=== PATIENT | female | born 1940 | race Caucasian/White ===

== ENCOUNTER 2017-05-23 08:58 | Inpatient (IN) | payer MEDICARE ==
--- NOTE | 2017-05-23 10:09 | CT ---
CT BRAIN WITHOUT CONTRAST: Date: 05/23/17 HISTORY: Headache. FINDINGS: There is an acute large intraparenchymal hematoma in the right temporal lobe measuring approximately 5.0 cm in largest dimension with surrounding edema. The ventricular size is appropriate. No midline shift is seen. No abnormal extra-axial fluid collections are noted. The bony calvarium is intact. T he visualized paranasal sinuses and mastoid air cells are well aerated. There are changes of mild ch ronic small vessel ischemic disease in the periventricular white matter. 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 IMPRESSION: Acute right temporal lobe parenchymal hemorrhage. Findings discussed over the telephone with JESSICA Toro, at 0948 hours. CODE CR. POS: [facility]
[2017-05-23 10:25] LABS: #Lymphocytes 0.8 thou/uL (1.20-3.40); #Monocytes 0.6 thou/uL (0.11-0.59); #Neutrophils 4.3 thou/uL (1.40-6.50); %Eosinophils 0.2 % (0.0-10.0); %Lymphocytes 14.3 % (21.0-51.0); %Monocytes 9.9 % (0.0-10.0); Hematocrit 34.9 % (36.0-47.0); Mean Platelet Volume 6.7 fL (7.4-10.4); Red Blood Cell (RBC) Count 3.73 mill/uL (4.20-5.40); White Blood Cell (WBC) Count 5.7 thou/uL (4.8-10.8)
[2017-05-23 10:32] LABS: PTT 24.8 SEC (22.9-36.1); Prothrombin Time 12.8 SEC (12.0-14.7)
[2017-05-23 10:37] LABS: ALT (SGPT) 17 U/L (8-55); AST (SGOT) 20 U/L (5-34); Alkaline Phosphatase 60 U/L (40-150); Anion Gap 15 mmol/L (10-20); BUN (Urea Nitrogen) 38 mg/dL (9.8-20.1); Bilirubin, Total 0.4 mg/dL (0.2-1.2); CK (CPK) 81 U/L (29-168); Calc. Creatinine Clearance 0 mL/min (70-130); Calcium 9.8 mg/dL (7.8-10.44); Carbon Dioxide 28 mmol/L (23-31); Chloride 97 mmol/L (98-107); Estimated GFR-MDRD 43; Globulin 3.4 g/dL (2.4-3.5); Protein, Total 7.8 g/dL (6.0-8.3)
[2017-05-23 10:41] LABS: Troponin I Less than 0.010 ng/mL (< 0.028)
[2017-05-23] MEDS ORDERED: Ondansetron ODT 4 MG TAB SL PRN (11:46)
[2017-05-23] MEDS ORDERED: Sodium Chloride 0.9% 1,000 ML IV SCH (11:46)
[2017-05-23] MEDS ORDERED: Ondansetron HCl/PF 4 MG/2 ML Vial IVP PRN (11:46)
[2017-05-23 11:56] VITALS: BMI 25.0
[2017-05-23] MEDS ORDERED: Mag-Al 1200 mg/1200 mg/30 ML UDCUP PO PRN (12:22)
[2017-05-23] MEDS ORDERED: Docusate 100 MG CAP PO PRN (12:22)
[2017-05-23] MEDS ORDERED: Bisacodyl 10 MG SUPP PR PRN (12:22)
[2017-05-23] MEDS ORDERED: niCARdipine 20MG in NaCl 200 ML BAG IVPB PRN (12:22)
--- NOTE | 2017-05-23 12:47 | HP ---
HISTORY OF PRESENT ILLNESS: The patient is a 77-year-old female with a past medical history of hypertension who presented to the ER for evaluation of a headache which began 1 week ago. She reports that headache began suddenly along the frontal region 1 week ago associated with 2 episodes of nausea and vomiting. She reports since that time headache been waxing and waning; however , she had persistent nausea. She has been treating headache with Aleve and aspirin; however, today headache worsened this morning; therefore, she was brought to the emergency department by her for further evaluation. CT head was done in the emergency department and revealed acute right-sided temporal hemorrhage. There is no midline shift. The patient's only complaints are headache and nausea. She has no other complaints at this time. Neurosurgery Service was consulted for further evaluation of this patient's acute intracranial hemorrhage. I am seeing the patient at bedside. She is comfortable. She has no complaints other than a mild headache. REVIEW OF SYSTEMS: Per HPI. PAST MEDICAL HISTORY: Notable for hypertension. PAST SURGICAL HISTORY: The patient denies any prior surgical history. FAMILY HISTORY: Noncontributory. SOCIAL HISTORY: The patient does not smoke, drink or use any drugs. ALLERGIES: The patient has no known drug allergies. MEDICATIONS LIST: Enalapril/hydrochlorothiazide 10 mg/25 mg 1 tab p.o. daily, Augmentin 2 tabs p.o. daily, aspirin 81 mg 1 tab p.o. daily. PHYSICAL EXAMINATION: CONSTITUTIONAL: No acute distress. VITAL SIGNS: Temperature 98.7, heart rate 87, respiration rate is 18, 98% on room air, BP is 142/44. HEAD: Head is normocephalic, atraumatic. EYES: PERRLA. Extraocular movements are intact. Sclerae are white. ENT: OP is clear. Moist oral mucosa, pink, intact. NECK: Nontender to palpation. Free active range of motion, no meningismus or nuchal rigidity. CARDIOVASCULAR: Regular rate and rhythm. LUNGS: Breathing comfortably, no events of dyspnea, symmetric chest expansion. MUSCULOSKELETAL: Good muscle tone bilateral upper and lower extremities. NEUROLOGIC: No focal motor weakness or reflex asymmetry. The patient is alert and oriented x4. No focal neurologic deficits are appreciated. She has normal cranial nerve exam. She has a no limb ataxia. Normal [id number]. ASSESSMENT AND PLAN: Acute intracranial hemorrhage. PLAN: I discussed the patient's presentation, exam findings and imaging with Dr. Oliver. We will admit patient to CCU for close monitoring. At this time , her blood pressure appears to be well controlled on her p.o. medications; however, will keep a close eye on blood pressure with a goal range of systolic less than 150. I have ordered Cardene p.r.n., head of the bed will be elevated to 30 degrees. We will discharge home aspirin. She is not on any other anticoagulants. The Critical Care Service has also been consulted. We will treat with fluids and recheck BMP. Please reach out to the Neurosurgical Service for additional questions or concerns. IMANI
[2017-05-23] MEDS ORDERED: Gadobenate Dimeglumine 529 MG/1 ML (20ML VIAL) ONE ×3 (13:32→13:33)
[2017-05-23] MEDS: Acetaminophen 325 MG TAB PO PRN ×2 (16:01→20:19)
--- NOTE | 2017-05-23 17:23 | MRI ---
MR ANGIOGRAM MRA OF HEAD NONCONTRAST: 05/23/17 HISTORY: 77-year-old female with acute intracranial, intraparenchymal hemorrhage. TECHNIQUE: 3D [id number] MRA performed in multiple axial slabs. Source images and 3D MIP reconstructions ev aluated. FINDINGS: The anterior and posterior circulation arteries are of normal caliber. There is no enlarged feeding artery or large draining vein associated with the moderately large right temporal lobe intra-axial h ematoma. There is no evidence of aneurysm greater than 3 mm. No high grade stenosis or occlusion. IMPRESSION: 1. Acute, moderately large right temporal lobe intra-axial hematoma. 2. Normal appearance of [place] arteries. 3. No evidence of arteriovenous malformation or aneurysm. POS: [facility]
--- NOTE | 2017-05-23 18:03 | MRI ---
MAGNETIC RESONANCE ANGIOGRAM MRA OF NECK WITH AND WITHOUT CONTRAST: Date: 05/23/17 HISTORY: Acute right temporal lobe intra-axial hematoma. TECHNIQUE: 2D [id number] MRA performed from cervicothoracic junction to skull base. IV injection of 10 mL MultiHance Gadolinium based contrast agent. FLASH 3D coronal sequence from level of aortopulmonic window to skull base. 3D MIP reconstructions of both sequences. FINDINGS: There is no high grade stenosis involving the brachiocephalic, bilateral proximal subclavian, bilate ral common carotid, or bilateral vertebral arteries. Mild stenosis at proximal right internal caroti d artery near origin. There is an approximately 0.7 cm length of proximal left internal carotid damir ry, beginning at its origin, that is stenotic. The degree of stenosis is moderate to severe. IMPRESSION: Moderate to severe stenosis of the proximal left internal carotid artery. POS: [facility]
--- NOTE | 2017-05-23 18:15 | MRI ---
MRI OF BRAIN WITH AND WITHOUT CONTRAST: 05/23/17 Multiplanar and multisequential imaging of brain obtained. Postcontrast images obtained after the ad ministration of 10 mL of Multihance. HISTORY: Right temporal parenchymal hematoma. Comparison made to CT earlier today. FINDINGS: Hematoma of the right temporal lobe is again noted. There is surrounding edema. Review of a diffusion weighted images shows some questionable restricted diffusion along the borders of this hematoma; however, there is no significant restricted diffusion extending to the peripheral cortex making a hemorrhagic infarct unlikely. On postcontrast images, there is some mild peripheral enhancement which can be seen with hematoma. T here is some nonspecific nodular enhancement seen along the posterior borders. Hemorrhagic neoplasm is felt less likely but not excluded. Followup will be necessary to reassess the enhancement. There is no aberrant vessels seen that would indicate an AVM. While there is no obvious signs of diffuse a myloid angiopathy on the gradient echo, amyloid angiopathy as an etiology for this hematoma remains a consideration. IMPRESSION: Right temporal lobe hematoma. 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 See discussion above. Periphe ral enhancement. POS: [facility]
[2017-05-24 03:55] LABS: #Eosinphils 0.1 thou/uL (0.0-0.7); #Lymphocytes 1.2 thou/uL (1.20-3.40); #Monocytes 0.6 thou/uL (0.11-0.59); #Neutrophils 3.1 thou/uL (1.40-6.50); %Basophils 0.9 % (0.0-1.0); %Eosinophils 1.7 % (0.0-10.0); %Lymphocytes 23.4 % (21.0-51.0); %Monocytes 12.4 % (0.0-10.0); Mean Platelet Volume 6.8 fL (7.4-10.4); White Blood Cell (WBC) Count 5.1 thou/uL (4.8-10.8)
[2017-05-24 04:09] LABS: Anion Gap 11 mmol/L (10-20); BUN (Urea Nitrogen) 29 mg/dL (9.8-20.1); Calc. Creatinine Clearance 45 mL/min (70-130); Calcium 9.2 mg/dL (7.8-10.44); Carbon Dioxide 28 mmol/L (23-31); Chloride 101 mmol/L (98-107); Estimated GFR-MDRD 58
[2017-05-24] MEDS ORDERED: niCARdipine HCl 25 MG in Sodium Chloride 0.9% 250 ML 240 ML IVPB SCH (06:45)
[2017-05-24] MEDS ORDERED: hydrALAZINE 20 MG/ML VIAL SLOW IVP PRN (07:53)
[2017-05-24] MEDS ORDERED: Labetalol HCl 100 MG/20 ML VIAL SLOW IVP PRN ×2 (07:53→18:15)
[2017-05-24] MEDS ORDERED: Ondansetron ODT 4 MG TAB PO PRN (07:55)
[2017-05-24] MEDS ORDERED: Calcium Carbonate 500 MG ChewTAB PO PRN (07:55)
[2017-05-24] MEDS ORDERED: Ondansetron HCl/PF 4 MG/2 ML Vial IVP PRN (07:55)
[2017-05-24] MEDS ORDERED: Acetaminophen 650 MG Suppository PR PRN (07:55)
[2017-05-24] MEDS ORDERED: cloNIDine 0.1 MG TAB PO PRN ×2 (07:57→18:14)
[2017-05-24] MEDS ORDERED: Potassium Chloride 10 MEQ TAB PO SCH ×3 (08:00→18:30)
[2017-05-24] MEDS ORDERED: Amlodipine 5 mg/Benazepril 10 mg CAP PO SCH (09:00)
[2017-05-24] MEDS: Docusate 100 MG CAP PO SCH ×2 (09:01→22:14)
[2017-05-24] MEDS: Famotidine 20 MG TAB PO SCH (09:01)
--- NOTE | 2017-05-24 09:14 | CT ---
PRELIMINARY REPORT/[facility]/EMERGENCY AFTER HOURS PROCEDURE: EXAM: CT Head Without Intravenous Contrast EXAM DATE/TIME: Exam ordered 05/24/2017 4:38 AM CLINICAL HISTORY: 77 years old, female; Signs and symptoms; Other: F/u stroke TECHNIQUE: Axial computed tomography images of the head/brain without intravenous contrast. COMPARISON: CT Brain WO Con 2017-05-23 09:40 FINDINGS: Brain: There is a stable RIGHT temporal lobe parenchymal hematoma measuring approximately 4.5 x 2.6 cm, unchanged from prior. There is increased density of the posterior inferior falx at the level of the occipital lobe which may represent hemorrhage, unchanged from prior. There is no significant mas s effect or midline shift. There is a focal basal ganglia hypodensity consistent with a remote lacun ar infarction. No significant white matter disease. Ventricles: Normal. No ventriculomegaly. Bones/joints: Normal. No acute fracture. Soft tissues: Normal. Sinuses: Unremarkable as visualized. No acute sinusitis. Mastoid air cells: Unremarkable as visualized. No mastoid effusion. IMPRESSION: 1. There is a stable RIGHT temporal lobe parenchymal hematoma measuring approximately 4.5 x 2.6 cm, unchanged from prior. 2. There is increased density of the posterior inferior falx at the level of the occipital lobe whic h may represent hemorrhage, unchanged from prior. Thank you for allowing us to participate in the care of your patient. Dictated and Authenticated by: Josue Shelton MD 05/24/2017 5:55 AM Central Time ([place] \T\ [place]) FINAL REPORT CT BRAIN WITHOUT CONTRAST: Date: 05/24/17 FINDINGS/IMPRESSION: I agree with the preliminary report given by Dr. Josue Shelton of [facility]. POS: [facility]
[2017-05-24] MEDS: Acetaminophen 325 MG TAB PO PRN ×2 (10:45→19:28)
--- NOTE | 2017-05-24 21:28 | PDOC.PN ---
- Subjective Encounter Start Date: 05/24/17 Encounter Start Time: 17:30 Patient seen and examined. No new complaints. Consulted for medical mngt. NSG signed off. - Objective MAR Reviewed: Yes Vital Signs & Weight: Vital Signs (12 hours) Temp Pulse Pulse Pulse Resp BP BP 05/24/17 19:52 05/24/17 19:35 99.1 F 80 18 05/24/17 17:30 97.4 F L 80 16 05/24/17 16:00 99.7 F H 05/24/17 15:00 99.7 F H 05/24/17 14:20 81 84 167/67 H 146/64 H 05/24/17 12:00 98.2 F BP Pulse Ox 05/24/17 19:52 96 05/24/17 19:35 149/67 H 96 05/24/17 17:30 135/61 100 05/24/17 16:00 05/24/17 15:00 05/24/17 14:20 05/24/17 12:00 Weight Weight 192 lb 14.472 oz Most Recent Monitor Data Heart Rate from ECG 89 NIBP 142/64 NIBP BP-Mean 95 Respiration from ECG 19 SpO2 97 I&O: 05/23/17 05/24/17 05/25/17 06:59 06:59 06:59 Intake Total 1733 540 Output Total 1250 860 Balance 483 -320 Result Diagrams: 05/24/17 03:31 05/25/17 03:21 EKG Reviewed by me: Yes (Tele SR) Phys Exam - Physical Examination Constitutional: NAD Respiratory: no wheezing, no rhonchi Cardiovascular: RRR, no rub Gastrointestinal: soft, non-tender, positive bowel sounds Musculoskeletal: no edema Neurological: moves all 4 limbs Dx/Plan (1) Intracranial bleed Code(s): I62.9 - NONTRAUMATIC INTRACRANIAL HEMORRHAGE, UNSPECIFIED Status: Acute (2) LORENZO (acute kidney injury) Code(s): N17.9 - ACUTE KIDNEY FAILURE, UNSPECIFIED Status: Acute (3) HTN (hypertension) Code(s): I10 - ESSENTIAL (PRIMARY) HYPERTENSION Status: Chronic (4) Hypokalemia Code(s): E87.6 - HYPOKALEMIA Status: Acute (5) CKD (chronic kidney disease) stage 2, GFR 60-89 ml/min Code(s): N18.2 - CHRONIC KIDNEY DISEASE, STAGE 2 (MILD) Status: Chronic (6) Chronic anemia Code(s): D64.9 - ANEMIA, UNSPECIFIED Status: Chronic - Plan cont current plan of care, DVT proph w/SCDs * Start Lisinopril * Hold HCTZ * Replace Potassium * AM labs * DC in AM if stable * No driving until cleared by MD * Full code. DPOA - Patient makes her own decisions with the help of her family. Review of Systems - Review of Systems Respiratory: negative: Cough, Dry, Shortness of Breath, Hemoptysis, SOB with Excertion, Pleuritic Pain, Sputum, Wheezing Cardiovascular: negative: Chest Pain, Palpitations, Orthopnea, Paroxysmal Noc. Dyspnea, Edema, Light Headedness, Other - Medications/Allergies Allergies/Adverse Reactions: Allergies Allergy/AdvReac Type Severity Reaction Status Date / Time No Known Drug Allergies Allergy Verified 05/23/17 15:56 Medications: Current Medications Acetaminophen (Tylenol) 650 mg PO Q4H PRN PRN Reason: Headache/Fever or Pain Last Admin: 05/24/17 19:28 Dose: 650 mg Acetaminophen (Tylenol) 650 mg WI Q4H PRN PRN Reason: Headache/Fever or Pain Al Hydroxide/Mg Hydroxide (Maalox) 30 ml PO QIDPRN PRN PRN Reason: Dyspepsia Bisacodyl (Dulcolax) 10 mg WI DAILYPRN PRN PRN Reason: Constipation Calcium Carbonate (Tums) 1,000 mg PO Q4H PRN PRN Reason: Heartburn or Indigestion Clonidine (Catapres) 0.1 mg PO Q4H PRN PRN Reason: Systolic BP > 160 Docusate Sodium (Colace) 100 mg PO BID [facility] Last Admin: 05/24/17 09:01 Dose: 100 mg Enalapril Maleate (Vasotec) 10 mg PO DAILY [facility] Last Admin: 05/24/17 09:24 Dose: 10 mg Famotidine (Pepcid) 20 mg PO DAILY [facility] Last Admin: 05/24/17 09:01 Dose: 20 mg Hydralazine HCl (Apresoline) 10 mg SLOW IVP Q4H PRN PRN Reason: SBP GREATER THAN 160 Labetalol HCl (Normodyne) 10 mg SLOW IVP Q4H PRN PRN Reason: Systolic BP > 160 Ondansetron HCl (Zofran Odt) 4 mg PO Q6H PRN PRN Reason: Nausea/Vomiting Ondansetron HCl (Zofran) 4 mg IVP Q6H PRN PRN Reason: Nausea/Vomiting Potassium Chloride (Klor-Con 10) 10 meq PO QAM-WM CHLOE Sodium Chloride (Flush - Normal Saline) 10 ml IVF PRN PRN PRN Reason: Saline Flush
[2017-05-25 03:56] LABS: Anion Gap 16 mmol/L (10-20); BUN (Urea Nitrogen) 20 mg/dL (9.8-20.1); BUN/Creatinine Ratio 23.81; Calc. Creatinine Clearance 49 mL/min (70-130); Carbon Dioxide 27 mmol/L (23-31); Chloride 99 mmol/L (98-107); Estimated GFR-MDRD 65
[2017-05-25 04:18] LABS: Phosphorus 2.2 mg/dL (2.3-4.7)
[2017-05-25 07:23] VITALS: BP 148/68; TEMP 98.1
[2017-05-25] MEDS ORDERED: K-Phos Neutral 250 MG TAB PO SCH (08:00)
[2017-05-25] MEDS ORDERED: Potassium Chloride 10 MEQ TAB PO SCH (08:00)
[2017-05-25] MEDS: Famotidine 20 MG TAB PO SCH (08:04)
[2017-05-25] MEDS: Docusate 100 MG CAP PO SCH (08:04)
--- NOTE | 2017-05-25 10:15 | DIS ---
DATE OF ADMISSION: 05/23/2017 DATE OF DISCHARGE: 05/25/2017 DISCHARGE DISPOSITION: Home. FOLLOWUP: Follow up with Dr. Valentin Coronel in 1 week. Basic metabolic panel with phosphorus in 1 week is recommended. Primary care physician advised to jermaine cole. Follow up with Dr. Oliver in 1-2 weeks. ALLERGIES: No known drug allergies. DISCHARGE MEDICATIONS: 1. Clonidine 0.1 mg twice daily as needed for systolic blood pressure more than 170. 2. K-Phos Neutral 250 mg twice a day for next 5 days. 3. Enalapril/HCTZ 10/25 daily. INPATIENT CONSULTANTS: The patient was admitted by Neurosurgery. Hospitalist Team was consulted fo r medical management. Neurosurgery has signed off. BRIEF HOSPITAL COURSE: The patient is a 77-year-old female with hypertension who presented to the [facility] with headache of 1 week duration. Her workup was consistent with intracranial bleed involvi ng right temporal lobe. The patient was admitted by Neurosurgery. MRI of the brain showed acute mo derately large right temporal lobe intraaxial hematoma. MRA of the brain was negative for AV malfor mation or any aneurysm. MRA of the neck showed moderate to severe stenosis of the proximal left int ernal carotid artery. Repeat CT scan next morning showed stable right temporal lobe hematoma approx imately 4.5 x 2.6 cm, unchanged from the prior. She will follow up with Neurosurgery after 2-3 week s. FINAL DIAGNOSES: 1. Acute intracranial hemorrhage involving the right temporal lobe. 2. Moderate to severe stenosis of the proximal left internal carotid artery. Primary care physicia n advised to follow. 3. Hypertension. 4. Hypokalemia. Potassium lowest was 3.3, at discharge was 3.8. 5. Acute kidney injury, probably secondary to dehydration. Creatinine on admission was 1.2 with BU N 38. At discharge, her BUN was 20 with creatinine of 0.84. 6. Hypophosphatemia. Phosphorus at discharge was 2.2. Magnesium was normal. 7. Chronic kidney disease stage 2. 8. Chronic anemia. Plan of care was discussed with the patient and family, they stated understanding.
--- NOTE | 2017-05-25 16:06 | DIS ---
DATE OF ADMISSION: 05/23/2017 DATE OF DISCHARGE: 05/25/2017 HOSPITAL COURSE: The patient is a 77-year-old female with the past medical history of hypertension, who presented to the ER on 05/23/2017 with report of headache. CT was done, which revealed right temporal lobe intracranial hemorrhage. She was admitted to the ICU for close monitoring and q.1 neuro checks. Her blood pressure remained stable and her repeat imaging the following morning with a brain MRI also showed a stable intracranial hemorrhage. MRI of brain was suggestive of amyloid angiopathy; MRA of the head and neck was negative for aneurysm or AVM. The patient remained stable throughout her course. She was tolerating a regular diet and voiding appropriately. She was dismissed home. We will plan to follow on outpatient basis with repeat imaging. Please reach up to the Neurosurgery Service for any additional questions or concerns. IMANI
--- NOTE | 2017-06-08 16:03 | EKG ---
Test Reason : Blood Pressure : / mmHG Vent. Rate : 075 BPM Atrial Rate : 075 BPM P-R Int : 184 ms QRS Dur : 084 ms QT Int : 386 ms P-R-T Axes : 064 002 033 degrees QTc Int : 431 ms Normal sinus rhythm No ST/T wave changes Abnormal ECG Confirmed by SANDIE GARVIN DO ([id number]), technical editor INGRID LANGLEY ([id number]) on 06/08/2017 4:02:41 PM Referred By: Confirmed By:SANDIE GARVIN DO
== END 2017-05-25 08:16 | disposition home or self-care (01) | DRG 65 ==
LOC: ERS 08:58 → CCU 10:12 → 2SE 05-24 17:27
PROVIDERS: ADMIT Neurological Surgery; ATTEND Neurological Surgery
DX: I61.9 Nontraumatic intracerebral hemorrhage, unspecified (principal); N17.9 Acute kidney failure, unspecified; I65.22 Occlusion and stenosis of left carotid artery; E86.0 Dehydration; E83.39 Other disorders of phosphorus metabolism; D63.1 Anemia in chronic kidney disease; Z79.82 Long term (current) use of aspirin; E87.6 Hypokalemia; I12.9 Hypertensive chronic kidney disease with stage 1 through stage 4 chronic kidney disease, or unspecified chronic kidney disease; N18.2 Chronic kidney disease, stage 2 (mild)
CPT/HCPCS: 36415; 70450; 70544; 70549; 70553; 80048; 80053; 80061; 80069; 82550; 82553; 83036; 83735; 84484; 85025; 85610; 85730; 93005; 99213; A9579; G0463; G8978-GP-CK; G8979-GP-CI

== ENCOUNTER 2017-06-11 10:17 | Inpatient (IN) | payer MEDICARE ==
[2017-06-11 11:02] LABS: #Lymphocytes 1.6 thou/uL (1.20-3.40); #Monocytes 0.5 thou/uL (0.11-0.59); #Neutrophils 3.3 thou/uL (1.40-6.50); %Basophils 0.7 % (0.0-1.0); %Eosinophils 0.5 % (0.0-10.0); %Lymphocytes 28.4 % (21.0-51.0); %Monocytes 9.3 % (0.0-10.0); Hematocrit 39.7 % (36.0-47.0); Mean Platelet Volume 9.1 fL (7.4-10.4); Red Blood Cell (RBC) Count 4.14 mill/uL (4.20-5.40); White Blood Cell (WBC) Count 5.5 thou/uL (4.8-10.8)
[2017-06-11 11:10] LABS: Prothrombin Time 12.5 SEC (12.0-14.7)
[2017-06-11 11:20] LABS: Lactic Acid - Sepsis 1.2 mmol/L (0.5-2.2)
[2017-06-11 11:28] LABS: ALT (SGPT) 17 U/L (8-55); AST (SGOT) 22 U/L (5-34); Alkaline Phosphatase 53 U/L (40-150); Anion Gap 28 mmol/L (10-20); BUN (Urea Nitrogen) 98 mg/dL (9.8-20.1); Bilirubin, Total 0.6 mg/dL (0.2-1.2); CK (CPK) 45 U/L (29-168); Calc. Creatinine Clearance 0 mL/min (70-130); Calcium 10.3 mg/dL (7.8-10.44); Carbon Dioxide 23 mmol/L (23-31); Chloride 89 mmol/L (98-107); Estimated GFR-MDRD 11; Globulin 3.3 g/dL (2.4-3.5); Lipase 193 U/L (8-78); Protein, Total 7.8 g/dL (6.0-8.3)
[2017-06-11 11:30] LABS: Troponin I Less than 0.010 ng/mL (< 0.028)
--- NOTE | 2017-06-11 11:54 | RAD ---
PORTABLE CHEST ONE VIEW: Date: 06-11-17 Time: 11:00 a.m. History: Altered mental status. FINDINGS: The heart size is normal. The lungs are expanded without focal areas of consolidation, pneumothorax, or pleural effusions. There are degenerative changes in the spine. IMPRESSION: No radiographic evidence of acute cardiopulmonary process. POS: [facility]
--- NOTE | 2017-06-11 11:54 | CT ---
CT BRAIN WITHOUT CONTRAST: Date: 06/11/17 HISTORY: Altered mental status. FINDINGS: Comparison made with exam of 05/24/17. The right temporal lobe parenchymal hematoma noted on the previous study is again seen, but is small er, measuring 3.0 x 2.0 cm. Adjacent surrounding edema is again noted. Old infarctions in the right occipital lobe and the left basal ganglia are again seen. The ventricular size is stable and the bas ilar cisterns are patent. No new infarcts, hemorrhages, midline shift, or abnormal extra-axial fluid collections are seen. The bony calvarium is intact. IMPRESSION: Interval reduction in size of the right temporal lobe parenchymal hematoma since 05/24/17. No new in farcts or hemorrhages are seen. POS: [facility]
--- NOTE | 2017-06-11 14:01 | NM ---
VQ SCAN: Date: 06/11/17 HISTORY: Shortness of breath. TECHNIQUE: A ventilation perfusion scan was performed using 22 mCi Xenon-133 by inhalation for the ventilation study followed by the intravenous administration of 6.6 mCi technetium-99m MAA for the perfusion sca n. FINDINGS: Correlation is made with the chest radiograph of same date. There is homogeneous tracer distribution in the lungs on both ventilation and perfusion scans withou t mismatched, pleural based, wedge-shaped, segmental/subsegmental perfusion defects. IMPRESSION: Normal exam. POS: [facility]
[2017-06-11] MEDS ORDERED: Ondansetron ODT 4 MG TAB SL PRN (14:02)
[2017-06-11] MEDS ORDERED: Sodium Chloride 0.9% 1,000 ML IV SCH (14:02)
[2017-06-11] MEDS ORDERED: Ondansetron HCl/PF 4 MG/2 ML Vial IVP PRN ×2 (14:02→14:06)
[2017-06-11] MEDS ORDERED: Acetaminophen 325 MG TAB PO PRN (14:06)
[2017-06-11] MEDS ORDERED: Senokot 8.6 MG TAB PO PRN (14:06)
[2017-06-11] MEDS ORDERED: Eucerin (Mineral Oil/Petrolatum,White) 30 gm Jar TOP PRN (14:06)
[2017-06-11] MEDS ORDERED: Artificial Tears 18 DROP/0.9 ML EA EYE PRN (14:06)
[2017-06-11] MEDS ORDERED: Loratadine 10 MG TAB PO PRN (14:06)
[2017-06-11] MEDS ORDERED: Loperamide HCl 2 MG CAP PO PRN (14:06)
[2017-06-11] MEDS ORDERED: Mag-Al 1200 mg/1200 mg/30 ML UDCUP PO PRN (14:06)
[2017-06-11] MEDS ORDERED: Sodium Chloride 0.65% Nasal 44 ML BOT EA NARE PRN (14:06)
[2017-06-11] MEDS ORDERED: Diabetic Tussin 200 MG/10 ML UDCUP PO PRN (14:06)
[2017-06-11] MEDS ORDERED: Zolpidem Tartrate 5 MG TAB PO PRN (14:06)
[2017-06-11] MEDS ORDERED: Ondansetron ODT 4 MG TAB PO PRN (14:06)
[2017-06-11] MEDS ORDERED: HYDROcodone/Acetaminophen 5/325 mg Tablet PO PRN (14:06)
[2017-06-11] MEDS ORDERED: hydrALAZINE 20 MG/ML VIAL SLOW IVP PRN (14:06)
[2017-06-11] MEDS ORDERED: Milk Of Magnesia 30 ML UDCUP PO PRN (14:06)
[2017-06-11] MEDS: Dextrose 5 % And 0.9 % NaCl 1,000 ML IV SCH (14:42)
--- NOTE | 2017-06-11 15:09 | HP ---
PRIMARY CARE PHYSICIAN: Dr. Valentin Coronel. REASON FOR ADMISSION: Acute kidney failure, acute hypotension and poor appetite. HISTORY OF PRESENT ILLNESS: A 77-year-old female who was recently admitted in our hospital on 05/23/2017. At that time, patient had right temporal lobe hematoma and she was admitted under neurosurgeon. The patient was discharged home on 05/25/2017. Patient was taking enalapril and hydrochlorothiazide medication for several years. She was given clonidine p.r.n. basis to use for high blood pressure, but patient did not require any hypertensive medications to use p.r.n. basis. Family member reports that since intracerebral hemorrhagic stroke, patient's appetite is significantly reduced. She was feeling metallic taste. She was having very poor appetite. She was feeling hunger, but because of metallic taste, she was not able to eat enough and drinking liquid. The patient continued to take her blood pressure medication on a daily basis. Patient was not liking any kind of food because she was not tasting any better and she was only drinking water for the last few days. Patient lost a significant amount of weight and she was becoming more and more weak and that is why the patient's family member decided to take her to primary care physician's office. At home, the patient's tried to check her blood pressure, but blood pressure was not able to be recorded and that is why they were concerned about and made appointment with Dr. Valentin Coronel, who directed her to go to the emergency room. When paramedics saw her at that time, her blood pressure was 69/44 and in the emergency room when she arrived, at that time her blood pressure was also very low. As this patient was recently hospitalized in the emergency room and that is why they did a VQ scan which was completely normal. Her CT brain today showed improvement in intracerebral hematoma. Routine blood tests showed acute kidney failure with a creatinine 3.94. In the emergency room, patient has received IV fluid and subsequently patient is being admitted to telemetry floor for further treatment. Patient denies any UTI symptoms. She denies any fever or chills. She denies any nausea or vomiting. She denies any diarrhea. She denies any abdominal pain. She denies any hematochezia or melena. She denies any headache, focal motor or sensory symptoms. Only main complaint is poor appetite and inability to feel taste and losing weight. ALLERGIES: No known drug allergies. CURRENT HOME MEDICATIONS: Enalapril with hydrochlorothiazide 10/25 one tablet p.o. daily. REVIEW OF SYSTEMS: The following complete review of systems was negative, unless otherwise mentioned in the HPI or below: CONSTITUTIONAL: Weight loss or gain, ability to conduct usual activities. SKIN: Rash, itching. EYES: Double vision, pain. ENT/MOUTH: Nose bleeding, neck stiffness, pain, tenderness. CARDIOVASCULAR: Palpitations, dyspnea on exertion, orthopnea. RESPIRATORY: Shortness of breath, wheezing, cough, hemoptysis, fever or night sweats. GASTROINTESTINAL: Poor appetite, abdominal pain, heartburn, nausea, vomiting, constipation, or diarrhea. GENITOURINARY: Urgency, frequency, dysuria, nocturia. MUSCULOSKELETAL: Pain, swelling. NEUROLOGIC/PSYCHIATRIC: Anxiety, depression. ALLERGY/IMMUNOLOGIC: Skin rash, bleeding tendency. Please see my HPI for pertinent positives and negatives. All other review of systems reviewed and negative except as mentioned in the HPI. PAST MEDICAL HISTORY: Recent admission in our hospital for right temporal lobe hematoma and hypertension. PAST SURGICAL HISTORY: Reviewed and negative. PAST PSYCHIATRIC HISTORY: Reviewed and negative. SOCIAL HISTORY: Patient is and lives at home. No history of tobacco, alcohol or illicit drug abuse. FAMILY HISTORY: No strong family history of premature coronary artery disease, stroke or cancer. EMERGENCY ROOM COURSE: The patient has received 2 liters of IV fluid. PHYSICAL EXAMINATION: VITAL SIGNS: On arrival, blood pressure was 69/44, pulse 76, respiratory rate 20, temperature 97.3, saturation 97% on room air. Weight 68.04 kilograms. GENERAL: Patient is currently alert, awake, appears weak. No obvious acute distress. HEAD: Normocephalic, atraumatic. EYES: Pupils round, reactive to light. Extraocular muscle intact. ENT: Oropharynx within normal limits. Dry mucous membranes, no oral lesions, no pharyngitis erythema, no exudate. NECK: Supple. Range of motion is normal. No meningeal signs of irritation. LUNGS: Clear to auscultation without any rhonchi or rales. CARDIAC: S1, S2 regular without any murmur. ABDOMEN: Soft, bowel sounds present, nontender, nondistended. No organomegaly , no mass, no suprapubic tenderness. BACK: Unremarkable, no CVA tenderness. EXTREMITIES: Upper extremity: Passive movement of all joints are normal. Lower extremity: No edema. Good peripheral pulsation. SKIN: No skin rash. HEMATOLOGICAL: No lymphadenopathy. PSYCHIATRIC: Normal affect. NEUROLOGIC: Nonfocal examination. At this point, patient's speech is normal. The patient is moving all 4 limbs. SIGNIFICANT LABS: EKG showing normal sinus rhythm, left atrial enlargement. CT brain showing interval reduction in size of right temporal lobe parenchymal hematoma, no new infarct or hemorrhage seen. CBC: WBC 5.5, hemoglobin 13.5, platelet 228. INR 0.9. D-dimer 3.91. BMP: Sodium 136, potassium 4.0, chloride 89, carbon dioxide 23, anion gap 28, BUN 98 , creatinine 3.94, glucose 102, calcium 10.3. Lactic acid 1.2. LFT: AST 22, ALT 17, alkaline phosphatase 53, albumin 4.5. CK-MB 1.0, troponin less than 0.010, CK 45, BNP 10.8. ASSESSMENT AND PLAN/IMPRESSION: 1. Acute kidney failure, prerenal etiology. Most likely, acute kidney failure is because of her poor p.o. intake and volume depletion. She is taking enalapril and hydrochlorothiazide medication for several years, but lately patient has very little p.o. intake and she continued to take diuretic therapy that might have contributed to her renal failure. At this point, we will consult Nephrology. We will obtain renal ultrasound to rule out any obstructive etiology. We will check urinalysis, urine sodium, urine creatinine , and urine protein. We will continue with IV fluid and we will monitor renal function. We will avoid nephrotoxic agents. 2. Poor failure to thrive. The patient has taste sensation altered, etiology uncertain. The patient had recently intracerebral hematoma and after that the patient's taste sensation is changed to metallic taste and that contributing to her poor p.o. intake and that is the main reason for acute kidney failure. At this point, the etiology of taste sensation change is not certain, but possibility of central etiology is likely given core relation with ICH and symptoms onset. We will start Remeron 7.5 mg p.o. at bedtime to stimulate appetite. We will also continue with multivitamin IV daily. We will also try zinc sulfate to improve taste sensation. 3. Acute hypotension. Etiology uncertain, but probably blood pressure medication and poor volume might have contributed to acute hypotension, underlying infection needs to be excluded, but less likely given no fever and no leukocytosis, lactic acid is normal. We will check urinalysis. We already ruled out thromboembolic disorder given elevated D-dimer. 4. History of hypertension, but currently low blood pressure and that is why we will discontinue enalapril, hydrochlorothiazide therapy because of renal failure. We will watch patient's hemodynamics while in hospital. 5. Generalized weakness. The patient will need PT, OT while in hospital. 6. Deep venous thrombosis prophylaxis. No Lovenox or heparin product because of recent intracranial hemorrhage, only SCD boots. 7. Gastrointestinal prophylaxis, Protonix 40 mg p.o. daily. 8. CODE STATUS: The patient is FULL CODE. Patient's is surrogate decision maker. 9. Alteration in taste sensation: will try to identify etiology during this admission. 10. H/o ICH: stable and improving Disposition plan based on clinical course. We are expecting patient's stay in the hospital more than 2 midnights. Plan of care discussed with the patient and family member in detail. At this point, our goal is to find out the exact etiology of her change in her taste sensation. At the same time, we will continue to treat underlying acute kidney failure. IMANI
[2017-06-11 17:33] LABS: Bilirubin Negative (Negative); Blood, Urine Negative (Negative); Glucose, Urine (Dipstick) Negative (Negative); Ketone, Urine 40 mg/dL (Negative); Nitrite Negative (Negative); Protein, Urine (Dipstick) Negative (Neg-Trace); Urobilinogen 0.2 mg/dL (0.2-1.0)
--- NOTE | 2017-06-11 17:34 | CON ---
DATE OF CONSULTATION: 06/11/2017 HISTORY OF PRESENT ILLNESS: Ms. Chavez is a 77-year-old white female who was admitted for acute ki dney injury secondary to volume depletion/hemodynamically mediated renal dysfunction. Her blood pre ssure was also noted to be on the low side and for that reason she is currently receiving IV hydrati on. Of interest, the patient was with her PCP despondent was found to have worsening renal dysfunct ion and was being awaited to decrease p.o. intake. We are being consulted for further management of this acute kidney injury. REVIEW OF SYSTEMS: Decreased appetite, decreased energy level. No nausea, no vomiting, no diarrhea , no constipation, no abdominal pain, no headache. Positive for occasional dizziness. No diplopia, no fever or chills, no shortness of breath. No hematochezia, no melena, no hematemesis, no gross h ematuria. Occasional joint pains. No sore throat, no diplopia. HOME MEDICATIONS: Include the following: Clonidine 0.1 mg b.i.d. p.r.n., K-Phos 250 mg b.i.d., bridget lapril/hydrochlorothiazide 10/25 one tablet once a day. PAST MEDICAL HISTORY: 1. Hypertension. 2. Recently status post right temporal lobe hematoma. PAST SURGICAL HISTORY: Status post colonoscopy. SOCIAL HISTORY: The patient lives with her . She lives in [place], three children. Smoked fo r 40 years, half a pack a day. Alcohol, none. Education, business school/high school. Denies any IV drug use. No blood transfusion. ALLERGIES: None. TRAUMA: None. IMMUNIZATIONS: Up to date. HOSPITALIZATIONS: Please see past medical history. FAMILY HISTORY: No family history of ESRD. PHYSICAL EXAMINATION: VITAL SIGNS: Blood pressure is 112/53, heart rate 81, respiratory rate 16, temperature 97.8, pulse ox 96%. GENERAL: Awake, alert, comfortable, not in distress. SKIN: Decreased turgor. HEENT: Has a pinkish conjunctivae, anicteric sclerae. NECK: No neck mass, no carotid bruits, no JVD. CHEST: No deformities. LUNGS: Clear breath sounds. No wheezing, no crackles. HEART: Normal sinus rhythm. No murmur, no gallops, no rubs. ABDOMEN: Globular, soft, nontender, no masses. GROIN: No inguinal lymphadenopathy. EXTREMITIES: No edema, no deformities. NEUROLOGIC: Awake, oriented to 3 spheres. Moving all extremities. No tremors, no asterixis, no at axia. LABORATORY DATA: Laboratories of 06/11/2017, white count 5.5, hemoglobin 13.5. Sodium 136, potassi um 4, chloride 89, carbon dioxide 23, BUN 98, creatinine 3.94, GFR 11 mL per minute, glucose 102, ca lcium 10.3, AST 22, ALT 17, albumin 4.5, lipase 193. CT scan of the brain 06/11/2017 shows interval reduction of the right temporal lobe hematoma, no new infarcts. Chest x-ray, no CHF. ASSESSMENT AND PLAN: Acute kidney injury - this is a hemodynamically mediated renal dysfunction. A gree with empiric volume repletion. Agree to hold off FRANCISCO inhibitors and diuretics. No indication for any dialytic intervention. Continue current management. I do anticipate improvement with the r enal function. Awaiting results of urinalysis and urine chemistries. Please note, renal ultrasound is currently ordered. Case discussed at length with the patient and his daughter.
[2017-06-11 17:35] LABS: Bacteria/HPF None Seen HPF (None Seen); Hyaline Casts/LPF 4-6 HYALINE CAST LPF (0-3 Hyaline); RBC/HPF 0-3 HPF (0-3); Squamous Epithelial None Seen HPF (0-3); WBC/HPF 0-3 HPF (0-3)
[2017-06-11 18:24] LABS: Sodium, Urine 79 mmol/L (Not Available)
--- NOTE | 2017-06-11 18:32 | ULT ---
EXAM: RENAL ULTRASOUND: 06/11/17 HISTORY: Acute renal failure. COMPARISON: None. TECHNIQUE: Sagittal and transverse imaging of the kidneys performed. FINDINGS: RIGHT KIDNEY: Normal cortical echotexture. No hydronephrosis. Right kidney measures 9.5 x 5.0 x 5.0 cm. LEFT KIDNEY: Normal cortical echotexture. No hydronephrosis. Left knee measures 9.8 x 5.0 x 4.9 cm. Urinary bladd er is unremarkable. IMPRESSION: No hydronephrosis. POS: KOJO
[2017-06-11] MEDS: Mirtazapine 15 MG TAB PO SCH (20:21)
[2017-06-12] MEDS: Dextrose 5 % And 0.9 % NaCl 1,000 ML IV SCH ×2 (00:04→13:08)
[2017-06-12 05:41] LABS: #Eosinphils 0.1 thou/uL (0.0-0.7); #Lymphocytes 1.1 thou/uL (1.20-3.40); #Monocytes 0.5 thou/uL (0.11-0.59); #Neutrophils 2.6 thou/uL (1.40-6.50); %Basophils 0.9 % (0.0-1.0); %Eosinophils 1.6 % (0.0-10.0); %Lymphocytes 26.3 % (21.0-51.0); %Monocytes 10.9 % (0.0-10.0); Hematocrit 29.3 % (36.0-47.0); Mean Platelet Volume 8.5 fL (7.4-10.4); Red Blood Cell (RBC) Count 3.03 mill/uL (4.20-5.40); White Blood Cell (WBC) Count 4.3 thou/uL (4.8-10.8)
[2017-06-12 05:54] LABS: ALT (SGPT) 13 U/L (8-55); AST (SGOT) 15 U/L (5-34); Alkaline Phosphatase 33 U/L (40-150); Anion Gap 11 mmol/L (10-20); BUN (Urea Nitrogen) 55 mg/dL (9.8-20.1); Bilirubin, Total 0.3 mg/dL (0.2-1.2); Calc. Creatinine Clearance 20 mL/min (70-130); Calcium 8.2 mg/dL (7.8-10.44); Carbon Dioxide 28 mmol/L (23-31); Chloride 105 mmol/L (98-107); Estimated GFR-MDRD 25
--- NOTE | 2017-06-12 08:08 | PDOC.PN ---
- Subjective Encounter Start Date: 06/12/17 Encounter Start Time: 08:06 -: old records requested/rev Patient seen and examined. No new complaints. No overnight events - Objective Resuscitation Status: Resuscitation Status FULL:Full Resuscitation MAR Reviewed: Yes Vital Signs & Weight: Vital Signs (12 hours) Temp Pulse Resp BP Pulse Ox 06/12/17 07:26 98.5 F 61 16 06/12/17 07:15 98.3 F 61 18 119/59 L 97 06/12/17 05:01 98.5 F 61 16 112/54 L 97 06/12/17 00:06 97.9 F 61 16 97/50 L 96 06/11/17 20:53 97.9 F 61 16 95 06/11/17 20:48 98.6 F 74 16 121/59 L 97 Weight Weight 118 lb 12.8 oz Result Diagrams: 06/12/17 04:48 06/12/17 04:48 Radiology Reviewed by me: Yes (renal us - normal) EKG Reviewed by me: Yes (nsr) Phys Exam - Physical Examination Constitutional: NAD HEENT: PERRLA, moist MMs, sclera anicteric Neck: no JVD, supple Respiratory: no wheezing, no rales, no rhonchi Cardiovascular: RRR, no significant murmur, no rub Gastrointestinal: soft, non-tender, no distention, positive bowel sounds Musculoskeletal: no edema, pulses present Neurological: non-focal, normal sensation Lymphatic: no nodes Psychiatric: normal affect, A&O x 3 Skin: no rash, normal turgor Dx/Plan (1) Acute kidney failure Status: Acute (2) Taste sense altered Code(s): R43.2 - PARAGEUSIA Status: Acute (3) Intracranial hematoma Code(s): S06.369A - TRAUM HEMOR CEREB, W LOC OF UNSP DURATION, INIT Status: Acute (4) CKD (chronic kidney disease) stage 2, GFR 60-89 ml/min Code(s): N18.2 - CHRONIC KIDNEY DISEASE, STAGE 2 (MILD) Status: Chronic (5) HTN (hypertension) Code(s): I10 - ESSENTIAL (PRIMARY) HYPERTENSION Status: Chronic (6) Failure to thrive in adult Status: Acute (7) Anemia, normocytic normochromic Code(s): D64.9 - ANEMIA, UNSPECIFIED Status: Chronic - Plan cont current plan of care, plan discussed w/ family, PT/OT * continue IVF * renal function improving * medication reviewed as below * symptomatic treatment * start PT * repeat labs tomorrow * CONSULT NEUROLOGY PER FAMILY REQUEST Review of Systems - Review of Systems Constitutional: negative: Fever, Chills, Sweats, Weakness, Malaise, Other Respiratory: negative: Cough, Dry, Shortness of Breath, Hemoptysis, SOB with Excertion, Pleuritic Pain, Sputum, Wheezing Cardiovascular: negative: Chest Pain, Palpitations, Orthopnea, Paroxysmal Noc. Dyspnea, Edema, Light Headedness, Other Gastrointestinal: negative: Nausea, Vomiting, Abdominal Pain, Diarrhea, Constipation, Melena, Hematochezia, Other Genitourinary: negative: Dysuria, Frequency, Incontinence, Hematuria, Retention , Other Musculoskeletal: negative: Neck Pain, Shoulder Pain, Arm Pain, Back Pain, Hand Pain, Leg Pain, Foot Pain, Other Skin: negative: Rash, Lesions, Evangelista, Bruising, Other - Medications/Allergies Allergies/Adverse Reactions: Allergies Allergy/AdvReac Type Severity Reaction Status Date / Time No Known Drug Allergies Allergy Verified 05/23/17 15:56 Medications: Current Medications Acetaminophen (Tylenol) 650 mg PO Q4H PRN PRN Reason: Headache/Fever or Pain Hydrocodone Bitart/Acetaminophen ([place] 5/325) 1 tab PO Q4H PRN PRN Reason: Moderate Pain (4-6) Al Hydroxide/Mg Hydroxide (Maalox) 30 ml PO Q6H PRN PRN Reason: Heartburn or Indigestion Artificial Tears (Tears Naturale) 0 drop EA EYE PRN PRN PRN Reason: Dry Eyes Guaifenesin (Robitussin Sf) 200 mg PO Q4H PRN PRN Reason: Cough Hydralazine HCl (Apresoline) 10 mg SLOW IVP Q4H PRN PRN Reason: Systolic BP > 180 Dextrose/Sodium Chloride (D5 0.9% Ns) 1,000 mls @ 125 mls/hr IV .Q8H [facility] Last Admin: 06/12/17 00:04 Dose: 1,000 mls Multivitamins 10 ml/Miscellaneous Medication 1 each/ Dextrose/Sodium Chloride 1 ,010 mls @ 125 mls/hr IV DAILY [facility] Loperamide HCl (Imodium) 2 mg PO PRN PRN PRN Reason: Diarrhea/Loose Stools Loratadine (Claritin) 10 mg PO DAILYPRN PRN PRN Reason: Sinus Symptoms Magnesium Hydroxide (Milk Of Magnesium) 30 ml PO DAILYPRN PRN PRN Reason: Constipation Mineral Oil/White Petrolatum (Eucerin Cream) 0 gm TOP BIDPRN PRN PRN Reason: Dry Skin Mirtazapine (Remeron) 7.5 mg PO HS [facility] Last Admin: 06/11/17 20:21 Dose: Not Given Ondansetron HCl (Zofran Odt) 4 mg PO Q6H PRN PRN Reason: Nausea/Vomiting Ondansetron HCl (Zofran) 4 mg IVP Q6H PRN PRN Reason: Nausea/Vomiting Pantoprazole Sodium (Protonix) 40 mg PO DAILY [facility] Senna (Senokot) 2 tab PO HSPRN PRN PRN Reason: Constipation Sodium Chloride ([place] Nasal [place] 0.65%) 0 ml EA NARE QIDPRN PRN PRN Reason: Nasal Congestion Sodium Chloride (Flush - Normal Saline) 10 ml IVF Q12HR [facility] Last Admin: 06/11/17 20:21 Dose: Not Given Sodium Chloride (Flush - Normal Saline) 10 ml IVF PRN PRN PRN Reason: Saline Flush Zinc Sulfate (Zinc Sulfate) 220 mg PO DAILY [facility] Zolpidem Tartrate (Ambien) 5 mg PO HSPRN PRN PRN Reason: Insomnia
[2017-06-12] MEDS ORDERED: [UNRECOGNIZED DRUG - OTHER] IV SCH ×3 (09:00)
[2017-06-12] MEDS ORDERED: ADMIXTURE FEE IV SCH ×3 (09:00)
[2017-06-12] MEDS ORDERED: MULTIVITAMINS IV SCH ×3 (09:00)
[2017-06-12] MEDS ORDERED: Multivit, Adult Inj 10 ML VIAL IV SCH (09:00)
--- NOTE | 2017-06-12 10:21 | PRG ---
DATE OF SERVICE: 06/12/2017 SUBJECTIVE: Ms. Chavez is a 77-year-old white female who was seen for an acute kidney injury that w as hemodynamically mediated renal dysfunction. She was also hypotensive. Aggressive IV volume reple tion was given. Her Enalapril and hydrochlorothiazide were discontinued. This morning renal functio n is much better. Patient is asymptomatic, denies any chest pain, shortness of breath, nausea or vom iting. OBJECTIVE: VITAL SIGNS: Blood pressure 119/59, heart rate 61, respiratory rate 18, temperature 98.3, pulse ox 9 7%. GENERAL: The patient is noted to be awake, alert, comfortable, not in distress. SKIN: Adequate turgor. HEENT: Pinkish conjunctivae. NECK: No neck mass. No carotid bruits, no JVD. CHEST: No deformities. LUNGS: Clear breath sounds. HEART: Normal sinus rhythm. No murmur, no gallops or rubs. ABDOMEN: Globular, soft, nontender, no masses. EXTREMITIES: No edema, no deformities. LABORATORY: 06/11/2017 - Urinalysis showed no protein, no red cells, no white cells. Urine sodium i s 79. Specific gravity 1013. Renal ultrasound normal. Chemistries of 06/12/2017 showed a BUN 55, creatinine 1.92, potassium is 3.6, albumin 3.0. ASSESSMENT AND PLAN: Acute kidney injury - hemodynamically mediated renal dysfunction, much improved . For the moment continue IV hydration. Due to the blood sugar that was noted at 227, I have change d her IV fluids from D5 normal saline to normal saline at the current rate. She is tolerating curren t IV fluid. Overall, much improved renal function. No indication for any dialytic intervention.
[2017-06-12] MEDS: Zinc Sulfate 220 MG CAP PO SCH (13:06)
[2017-06-12] MEDS: Sodium Chloride 0.9% 1,000 ML IV SCH ×2 (13:07→20:12)
[2017-06-12] MEDS: Mirtazapine 15 MG TAB PO SCH (20:30)
[2017-06-13] MEDS: Sodium Chloride 0.9% 1,000 ML IV SCH ×2 (03:57→14:52)
[2017-06-13 04:47] LABS: #Basophils 0.1 thou/uL (0.0-0.2); #Eosinphils 0.2 thou/uL (0.0-0.7); #Monocytes 0.5 thou/uL (0.11-0.59); %Basophils 1.1 % (0.0-1.0); %Lymphocytes 41.6 % (21.0-51.0); %Monocytes 10.4 % (0.0-10.0); Hematocrit 28.7 % (36.0-47.0); Mean Platelet Volume 8.9 fL (7.4-10.4); Red Blood Cell (RBC) Count 2.95 mill/uL (4.20-5.40); White Blood Cell (WBC) Count 4.7 thou/uL (4.8-10.8)
[2017-06-13 04:52] LABS: Anion Gap 8 mmol/L (10-20); BUN (Urea Nitrogen) 26 mg/dL (9.8-20.1); Calc. Creatinine Clearance 37 mL/min (70-130); Calcium 8.1 mg/dL (7.8-10.44); Carbon Dioxide 27 mmol/L (23-31); Chloride 111 mmol/L (98-107); Estimated GFR-MDRD 46
[2017-06-13 07:26] LABS: Magnesium 1.3 mg/dL (1.6-2.6)
[2017-06-13 07:30] LABS: Phosphorus 1.5 mg/dL (2.3-4.7)
[2017-06-13] MEDS ORDERED: K-Phos Neutral 250 MG TAB PO SCH (08:00)
[2017-06-13] MEDS ORDERED: Magnesium Sulfate 4 GM, Admixture Fee 1 EACH in Sodium Chloride 0.9% 250 ML 250 ML IVPB SCH (08:00)
[2017-06-13] MEDS: Zinc Sulfate 220 MG CAP PO SCH (08:05)
[2017-06-13] MEDS ORDERED: Folic Acid 1 MG TAB PO SCH (09:00)
[2017-06-13] MEDS ORDERED: Cyanocobalamin (Vitamin B-12) 1,000 MCG TAB PO SCH (09:00)
--- NOTE | 2017-06-13 09:07 | PRG ---
DATE OF SERVICE: 06/13/2017 RENAL MEDICINE SUBJECTIVE: Ms. Chavez is a 77-year-old white female, who was seen for an acute kidney injury that was hemodynamically mediated renal dysfunction. She was empirically given volume repletion with impr ovement of renal function over the last several days. Please note her enalapril/hydrochlorothiazide has also been discontinued. Her creatinine is much improved this morning. The patient voices no new complaints. She denies any chest pain or shortness of breath. PHYSICAL EXAMINATION: VITAL SIGNS: Blood pressure is 138/59, heart rate 70, respiratory rate 20, temperature 97.7, pulse o x 98%. GENERAL: Awake, alert, comfortable, not in distress. SKIN: Adequate turgor. HEENT: She has pinkish conjunctivae, anicteric sclerae. NECK: No neck mass, no carotid bruits, no JVD. CHEST: No deformities. LUNGS: Clear breath sounds. No wheezing, no crackles. HEART: Normal sinus rhythm. No murmur, no gallops, no rubs. ABDOMEN: Globular, soft, nontender. No masses. EXTREMITIES: No edema. MEDICATIONS: Medications of 06/13/2017 reviewed. LABORATORY DATA: Laboratories of 06/13/2017; sodium 142, potassium 3.7, chloride 111, carbon dioxide 27, BUN 26, creatinine 1.13, GFR 46 mL per minute, glucose 94, calcium 8.1, phosphorus 1.5, and magn esium is 1.3. ASSESSMENT AND PLAN: 1. Hypophosphatemia/hypomagnesemia - this is secondary to decreased p.o. intake. Encourage patient to increase her p.o. intake. She tells me her appetite is better this morning. If she is able to ma intain an adequate p.o. intake, I think this electrolyte abnormality will equilibrate. 2. Acute kidney injury - much improved - this is a prerenal, much improved renal function with IV hy dration and discontinuation of her enalapril and hydrochlorothiazide. Continue to hold off these med ications. From a renal point of view, this patient can be discharged. I did explain to the patient that she can call my office for a followup visit. Overall, agree with current management.
[2017-06-13 11:39] VITALS: BP 132/66; TEMP 97.9
[2017-06-13] MEDS ORDERED: Calcium Carbonate 500 MG ChewTAB PO PRN (12:39)
[2017-06-13] MEDS ORDERED: Mag-Al 1200 mg/1200 mg/30 ML UDCUP PO PRN (12:39)
[2017-06-13 14:28] VITALS: BMI 23.3
--- NOTE | 2017-06-13 14:31 | DIS ---
DATE OF ADMISSION: 06/11/2017 DATE OF DISCHARGE: 06/13/2017 DISCHARGE DISPOSITION: Home. FOLLOWUP: 1. Follow up with primary care physician, Dr. Valentin Coronel in 1 week. 2. Follow up with Dr. Clari Das tomorrow at 9:00 a.m. ALLERGIES: No known drug allergies. DISCHARGE MEDICATIONS: 1. Amlodipine 2.5 mg daily. 2. Clonidine as needed. 3. Vitamin B12. 4. Folic acid. 5. Multivitamin daily. 6. Protonix 40 mg daily. 7. Thiamine 100 mg daily. 8. Remeron 7.5 mg daily. 9. Zinc sulfate 220 mg daily. INPATIENT CONSULTANTS: Nephrology, Dr. Leon. The patient was seen and examined on the day of discharge. Denies any new complaints. No chest pain , shortness of breath, palpitations reported. Appetite has somewhat improved. BRIEF HOSPITAL COURSE: The patient is a 77-year-old female with recent right temporal bleed, present ed to the hospital with low blood pressure. Her workup was consistent with acute kidney injury secon lamar to dehydration. Patient was also hypotensive. Please refer to the history and physical dated 08/11/2016 for further details. The patient was admitted to the hospital with the diagnosis of acute kidney injury with creatinine of 3.94 with BUN 98, anion gap of 28. She was started on IV fluids per Dr. Leon, Nephrology. Renal ult rasound was done, which was negative for obstructive uropathy. Due to elevated D-dimer, she underwen t a VQ scan that was normal. The patient was discharged from this facility on 05/25/2017 after intracranial bleed in the right tem poral lobe. Repeat CT scan showed improvement. It is unclear what caused the bleed. MRI of the bra in was suggestive of amyloid angiopathy. MRA of the head and neck was negative for aneurysm. The ana cerna is concerned due to poor appetite and metallic taste. The reason for the acute kidney injury wa s poor appetite. She has been started on Remeron. She will follow up with Neurology as outpatient. She will probably need further cognitive workup with Dr. Reza if necessary. Her creatinine on the day of discharge is 1.13. She also had some electrolyte imbalance that has been replaced. FINAL DIAGNOSES: 1. Acute kidney injury secondary to dehydration and poor appetite. Please note that FRANCISCO inhibitor a nd hydrochlorothiazide has been discontinued. 2. Failure to thrive. 3. Hypotension secondary to dehydration. 4. Anion gap metabolic acidosis secondary to renal failure. 5. History of hypertension. 6. Generalized weakness. 7. Poor appetite with metallic taste in the mouth. Remeron has been started. Patient will follow u p with Neurology tomorrow. 8. Chronic anemia. 9. Electrolyte imbalance including hypophosphatemia and hypomagnesemia. 10. Moderate protein calorie malnutrition. 11. Elevated D-dimer with negative VQ scan. 12. History of intracranial bleed as discussed above. Plan of care was discussed with the patient and the family in detail and they stated understanding. Total time coordinating the discharge along with education was 35 minutes. All questions were answer ed.
== END 2017-06-13 15:30 | disposition home or self-care (01) | DRG 683 ==
LOC: ERS 10:17 → 2SE 11:51
PROVIDERS: ADMIT Internal Medicine; ATTEND Internal Medicine
DX: N17.9 Acute kidney failure, unspecified (principal); E87.2 Acidosis; I95.9 Hypotension, unspecified; E86.9 Volume depletion, unspecified; E83.42 Hypomagnesemia; E86.0 Dehydration; D64.9 Anemia, unspecified; E83.39 Other disorders of phosphorus metabolism; R62.7 Adult failure to thrive; R43.2 Parageusia; I12.9 Hypertensive chronic kidney disease with stage 1 through stage 4 chronic kidney disease, or unspecified chronic kidney disease; N18.2 Chronic kidney disease, stage 2 (mild); S06.349D Traumatic hemorrhage of right cerebrum with loss of consciousness of unspecified duration, subsequent encounter
CPT/HCPCS: 36415; 70450; 71010; 76770; 78582; 80048; 80053; 81001; 82553; 82570; 83605; 83690; 83735; 83880; 84100; 84156; 84300; 84484; 85025; 85379; 85610; 85730; 87040; 93005; 96360; A4216; A9540; A9558; G8978-GP-CI; G8979-GP-CI; G8980-GP-CI; G8987-GO-CI; G8988-GO-CI; G8989-GO-CI; J3475; J7042; J7050

== ENCOUNTER 2017-07-09 13:05 | Outpatient (CLI) | payer MEDICARE ==
--- NOTE | 2017-07-09 16:29 | MRI ---
EXAM: MRI OF BRAIN WITH AND WITHOUT CONTRAST 07/09/17 HISTORY: Fall with intracranial hemorrhage. COMPARISON: 05/23/17. CORRELATION: Noncontrast head CT 06/11/17. TECHNIQUE: Brain MRI is performed with and without intravenous gadolinium administration. Multisequential, multi planar imaging is performed. FINDINGS: Redemonstration of a focus of hemorrhage centered in the right temporal lobe. Currently there is intr insic ventral and peripheral T1 hyperintensity with associated interval T2 and FLAIR hyperintensity s uggesting liquefication of a previous hematoma. On the gradient echo images, the previously noted óscar tral hypointensity has now been confirmed predominantly in a peripheral fashion. Currently, This citlali paula measures 2.8 cm mediolateral x 4.7 cm anterior posteriorly. There is an area of malacic change w ith hemosiderin deposition and gliosis involving the right occipital lobe. Previously, there was an a na of cystic change in this region. The central arterial flow voids are maintained. No restricted diffusion to suggest infarction. There is restricted diffusion associated with the evolving hematoma. The postcontrast images are limited in evaluation due to intrinsic T1 hyperintensity. No additional areas of abnormal enhancement are appre ciated. IMPRESSION: 1. Liquefication and expected evolutionary changes of a hematoma centered in the right temporal lobe. 2. No obvious abnormal enhancement. Limited evaluation of intrinsic T1 hyperintensity. Followup imaging is recommended to ensure resolution of hematoma and to exclude underlying vascular lesion. 3. Malacia and gliotic change involving the right occipital lobe. POS: [facility]
== END 2017-07-09 13:06 | disposition home or self-care (01) ==
LOC: TBSIIMAG 13:05
PROVIDERS: ATTEND Neurological Surgery
DX: I61.9 Nontraumatic intracerebral hemorrhage, unspecified (principal); G93.89 Other specified disorders of brain
CPT/HCPCS: 70553

== ENCOUNTER 2018-04-11 08:56 | Outpatient (CLI) | payer MEDICARE | END 2018-04-11 08:57 | disposition home or self-care (01) | LOC: BICMAMMO 08:56 | PROVIDERS: ATTEND Family Medicine | DX: Z12.31 Encounter for screening mammogram for malignant neoplasm of breast (principal); N64.89 Other specified disorders of breast | CPT/HCPCS: 77063; 77067 ==

== ENCOUNTER 2018-05-23 12:40 | Outpatient (CLI) | payer MEDICARE ==
--- NOTE | 2018-05-23 18:24 | ULT ---
CAROTID ULTRASOUND: DATE: 05/23/18 COMPARISON: None. HISTORY: Right carotid bruit. TECHNIQUE: Multiplanar Fletcher scale and color Doppler images were obtained in a carotid ultrasound. Spectral breana sis of the Doppler waveforms were performed. FINDINGS: A small amount of plaque is seen surrounding both carotid bifurcations. The Doppler waveforms are nor mal bilaterally. Peak systolic velocity in the right ICA is 102 cm/second. Peak systolic velocity in the right CCA is 88 cm/second. The right ICA/CCA ratio is 1.2. Peak systolic velocity in the left ICA is 165 cm/second. Peak systolic velocity in the left CCA is 10 3 cm/second. The left ICA/CCA ratio is 1.6. Both vertebral arteries demonstrate antegrade flow without focal stenosis. IMPRESSION: Moderate stenosis of 50-69% per velocity criteria in the left internal carotid artery. POS: NATHAN
== END 2018-05-23 12:41 | disposition home or self-care (01) ==
LOC: BICULT 12:40
PROVIDERS: ATTEND Family Medicine
DX: R09.89 Other specified symptoms and signs involving the circulatory and respiratory systems (principal); I65.22 Occlusion and stenosis of left carotid artery
CPT/HCPCS: 93880

== ENCOUNTER 2018-05-28 08:42 | Outpatient (CLI) | payer MEDICARE ==
--- NOTE | 2018-05-28 10:41 | BD ---
DEXA SCAN: INDICATIONS: Postmenopausal osteoporosis. FINDINGS: LUMBAR SPINE BMD (g/cm2) T-SCORE Z-SCORE L1 0.800 -1.7 0.6 L2 0.874 -1.4 1.2 L3 0.962 -1.1 1.7 L4 0.840 -2.0 0.8 L1-L4 0.869 -1.6 1.1 LEFT FEMORAL NECK 0.628 -2.0 0.3 LEFT TOTAL HIP 0.839 -0.8 1.2 The FRAX-WHO Fracture Risk Assessment Tool estimates the 10 year fracture risk for this patient for a major osteoporotic fracture at 15% and for a hip fracture is 4.3%. IMPRESSION: Based on the World Health Organization (WHO) criteria, the patient's bone mineral density is consider ed osteopenic. The patient is at moderate risk for fracture. POS: NATHAN
== END 2018-05-28 08:43 | disposition home or self-care (01) ==
LOC: BICMAMMO 08:42
PROVIDERS: ATTEND Family Medicine
DX: Z78.0 Asymptomatic menopausal state (principal)
CPT/HCPCS: 77080

== ENCOUNTER 2020-06-14 10:48 | Inpatient (IN) | payer MEDICARE ==
[2020-06-14] MEDS ORDERED: niCARdipine 20MG In NaCl 20 MG/200 ML BAG ONE ×2 (10:59→14:38)
[2020-06-14 11:04] LABS: #Basophils 0.1 thou/uL (0.0-0.2); #Lymphocytes 2.4 thou/uL (1.20-3.40); #Monocytes 0.7 thou/uL (0.11-0.59); #Neutrophils 5.8 thou/uL (1.40-6.50); %Basophils 0.6 % (0.0-1.0); %Eosinophils 0.2 % (0.0-10.0); %Lymphocytes 26.9 % (21.0-51.0); %Monocytes 7.3 % (0.0-10.0); Hemoglobin 12.3 g/dL (12.0-16.0); Mean Corpuscular HGB CONC 33.8 g/dL (32.0-36.0); Mean Corpuscular Hemoglobin 32.5 pg (27.0-31.0); Mean Corpuscular Volume 96.2 fL (78.0-98.0); Mean Platelet Volume 7.5 fL (7.4-10.4); Platelet Count 258 thou/uL (130-400); RBC Distribution Width 10.8 % (11.5-14.5); Red Blood Cell (RBC) Count 3.78 mill/uL (4.20-5.40); White Blood Cell (WBC) Count 8.9 thou/uL (4.8-10.8)
[2020-06-14] MEDS ORDERED: Ondansetron PF 4 MG/2 ML Vial ONE (11:07)
[2020-06-14 11:13] LABS: INR-International Normal Ratio 0.9; PTT 25.2 sec (22.9-36.1); Prothrombin Time 12.2 sec (12.0-14.7)
[2020-06-14 11:21] LABS: ALT (SGPT) 12 U/L (8-55); AST (SGOT) 27 U/L (5-34); Albumin 4.7 g/dL (3.4-4.8); Alkaline Phosphatase 53 U/L (40-110); Anion Gap 18 mmol/L (10-20); BUN (Urea Nitrogen) 31 mg/dL (9.8-20.1); Bilirubin, Total 0.5 mg/dL (0.2-1.2); CK (CPK) 69 U/L (29-168); Calc. Creatinine Clearance 0 mL/min (70-130); Carbon Dioxide 24 mmol/L (23-31); Chloride 100 mmol/L (98-107); Estimated GFR-MDRD 43; Globulin 3.1 g/dL (2.4-3.5); Glucose 118 mg/dL (83-110); Protein, Total 7.8 g/dL (6.0-8.3); Sodium 138 mmol/L (136-145)
--- NOTE | 2020-06-14 11:32 | CT ---
CT HEAD WITHOUT CONTRAST: Date: 06/14/2020 INDICATION: Stroke protocol. Mental status change. Comparison made to prior head CT of 06/11/2017. FINDINGS: There is now an intraparenchymal hematoma in the left frontoparietal region involving the cortex. Thi s measures up to 6.0 cm AP dimension. There is mild mass effect and surrounding edema. Minimal midlin e shift at this time. Volume loss in the right temporal lobe at the site of the previously noted right temporal hematoma. Ventricles have normal size and position. Chronic ischemic white matter change. IMPRESSION: Intraparenchymal hematoma involving the left frontoparietal region and involving the cortex. Findings probably represent a hemorrhagic infarct. Other parenchymal hematoma etiologies such as amyloid julián opathy are considerations in a patient of this age. Findings relayed to Dr. Ortiz at 1106 hours. CODE CR. POS: SARA
--- NOTE | 2020-06-14 12:57 | PDOC.HHP ---
Hospitalist HPI - History of Present Illness Acute neurologic changes. History of Present Illness: Patient is a 80-year-old female with a history of a right temporal intracerebral hemorrhage about 3 years ago. She did well had a good outcome from that. She has some chronic hypertension. She subsequently was doing well today. She had follow-up with her primary provider and then went to eat. While eating the patient had an acute episode of slumping over becoming unresponsive. Ambulance was called and the patient was brought to the emergency department where CT scan has revealed acute intracranial bleed. Patient's is present and is unaware of any preceding symptoms. Patient has generally been feeling well. ED Course: Patient has been started on a Cardene drip for blood pressure control. She has been seen in consultation by neurosurgery. No surgery indicated at this time. Plan is for repeat CT scan shortly. Hospitalist ROS - Review of Systems ROS unobtainable: due to mental status Other: Patient's reports that as far as he knows she has been eating and drinking with normal bowel and bladder habits. - Medication Medications: Lisinopril/HCTZ 1025 1 p.o. daily Hospitalist History - Past Medical History Cardiac: reports: HTN APPEALS COORDINATOR: reports: Other (History of prior right temporal lobe bleed.) - Past Surgical History Past Surgical History: reports: no pertinent history - Family History Family History: reports: no pertinent history - Social History Smoking Status: Former smoker (Quit about 15 years ago) Alcohol: reports: Occassional Drugs: reports: none Living Situation: With Family Other Social History: Patient is . Her is present. She is full code. - Exam General - other findings: Patient does not respond to external stimuli. Moving spontaneously. Eye: PERRL Eye - other findings: Largely left lateral gaze Neck: supple, symmetric, no JVD, no thyromegaly, no lymphadenopathy, no carotid bruit Heart: RRR, no murmur, no gallops, no rubs, normal peripheral pulses Respiratory: CTAB, no wheezes, no rales, no ronchi, normal chest expansion, no tachypnea, normal percussion Gastrointestinal: soft, non-distended, normal bowel sounds, no palpable masses, no hepatomegaly, no splenomegaly, no bruit Extremities: no cyanosis, no clubbing, no edema Skin: normal turgor Neurological - other findings: Moves all extremities spontaneously. Musculoskeletal: generalized weakness Psychiatric - other findings: Very encephalopathic although she is awake. Hospitalist Results - Labs Result Diagrams: 06/14/20 10:54 06/14/20 10:54 Lab results: WBC 8.9 thou/uL (4.8-10.8) 06/14/20 10:54 Hgb 12.3 g/dL (12.0-16.0) 06/14/20 10:54 Hct 36.4 % (36.0-47.0) 06/14/20 10:54 MCV 96.2 fL (78.0-98.0) 06/14/20 10:54 Plt Count 258 thou/uL (130-400) 06/14/20 10:54 Neutrophils % 65.0 % (42.0-75.0) 06/14/20 10:54 Sodium 138 mmol/L (136-145) 06/14/20 10:54 Potassium 4.0 mmol/L (3.5-5.1) 06/14/20 10:54 Chloride 100 mmol/L (98-107) 06/14/20 10:54 Carbon Dioxide 24 mmol/L (23-31) 06/14/20 10:54 BUN 31 mg/dL (9.8-20.1) H 06/14/20 10:54 Creatinine 1.21 mg/dL (0.6-1.1) H 06/14/20 10:54 Glucose 118 mg/dL (83-110) H 06/14/20 10:54 Calcium 11.0 mg/dL (7.8-10.44) H 06/14/20 10:54 Total Bilirubin 0.5 mg/dL (0.2-1.2) 06/14/20 10:54 AST 27 U/L (5-34) 06/14/20 10:54 ALT 12 U/L (8-55) 06/14/20 10:54 Alkaline Phosphatase 53 U/L (40-110) 06/14/20 10:54 Creatine Kinase 69 U/L (29-168) 06/14/20 10:54 Troponin I Less than 0.010 ng/mL (< 0.028) 06/14/20 10:54 Serum Total Protein 7.8 g/dL (6.0-8.3) 06/14/20 10:54 Albumin 4.7 g/dL (3.4-4.8) 06/14/20 10:54 - Radiology Interpretation CT scan - head Status: image reviewed by me, report reviewed by me Additional Comment: IMPRESSION: Intraparenchymal hematoma involving the left frontoparietal region and involving the cortex. Findings probably represent a hemorrhagic infarct. Other parenchymal hematoma etiologies such as amyloid angiopathy are considerations in a patient of this age. Hospitalist H&P A/P - Problem (1) ICH (intracerebral hemorrhage) Code(s): I61.9 - NONTRAUMATIC INTRACEREBRAL HEMORRHAGE, UNSPECIFIED Status: Acute (2) HTN (hypertension) Code(s): I10 - ESSENTIAL (PRIMARY) HYPERTENSION Status: Chronic - Plan Plan: Left frontoparietal intraparenchymal hemorrhage: Patient has been evaluated by neurosurgery. No acute indication for surgery. Will be repeating a CT scan shortly. Continue to aggressively control blood pressure with Cardene drip. Frequent neuro checks. Avoid anticoagulation. Hypertension: Cardene drip in order to maintain aggressive control of blood pressure in the setting of the intraparenchymal hemorrhage.
[2020-06-14] MEDS ORDERED: niCARdipine 25 MG in Sodium Chloride 0.9% 250 ML 240 ML IVPB SCH (13:00)
--- NOTE | 2020-06-14 13:10 | CON ---
DATE OF CONSULTATION: HISTORY OF PRESENT ILLNESS: Ms. Chavez is an 80-year-old woman, presenting to [facility] via personal vehicle transport by her after she began to have weakness and loss of function in the right upper and in the right lower extremities, and then ultimately became confused and then aphasic. Upon presentation to the emergency department, CT scan of the head reveals some large volume left-sided intraparenchymal hemorrhage to the temporoparietal lobes. This encompasses a large swath of the posterior half of the left cerebral hemisphere. At this time, there is no midline shift notable. The patient does not take any blood thinning medications according to at bedside. Apparently, the patient has a very high level of function at baseline. They were out at a doctor's visit this morning, which went well and then went to grab something to eat when this occurred. PHYSICAL EXAMINATION: On examination, the patient is very mildly agitated and moving her left upper and left lower extremities spontaneously, repositioning herself in the bed frequently, turning her head side to side. She does have somewhat of a leftward gaze deviation, but will look at me towards the right when asked. She does not follow commands, although squeezes my hand, I think this is more spontaneous than by request. During my examination, she will move the right lower extremity, particularly distally, but does not move the right upper extremity. Pupils are equal, round, and reactive to light. Extraocular movements are intact. Current systolic pressure is in the 120s, which is excellent. Heart rate is averaging around 101, SpO2 of 97% to 98% on nasal cannula. She continues to maintain and protect her airway quite well. ASSESSMENT: Intraparenchymal hemorrhage. PLAN: At this time, the patient will be admitted to the ICU with q.1 hour neuro checks, head of bed elevated 30 degrees. Fluids running at recommended 75 to 80 mL/h. I did discuss with the the possibility of utilization of mannitol should her intracerebral pressure increase. We will track her examination for this purpose. Repeat a CT scan at 1530. We will follow up thereafter. No surgical intervention planned. Job ID: [id number] MTDD
[2020-06-14 14:55] LABS: Troponin I Less than 0.010 ng/mL (< 0.028)
--- NOTE | 2020-06-14 15:23 | CON ---
NEUROLOGY CONSULTATION DATE OF CONSULTATION: 06/14/2020 REASON FOR CONSULTATION: Acute onset right facial droop, right-sided weakness, and aphasia. HISTORY OF PRESENT ILLNESS: Ms. Laura Chavez is an 80-year-old female with medical history significant for right temporal intracerebral hemorrhage 3 years ago and hypertension, presented today with acute onset right-sided weakness with aphasia and right facial droop. The history is taken from the at the bedside. Per , she had a regular followup with the primary care provider and then they went to eat at the [employer]. Per , he was taking the car out of the parking lot and at that time, he found her to be extremely confused and not talking at all. Followed by unresponsiveness, he called the ambulance and she was brought to the emergency department, where head CT was done, which showed an acute intracranial bleed. She was also found to be hypertensive, so she was started on a Cardene drip for blood pressure control. She was seen by Neurosurgery and Neurosurgery indicated no intervention at this time and they plan to repeat the head CT again to see if there is any interval change, which may require any intervention. REVIEW OF SYSTEMS: Unobtainable due to mental status. Per , she was in normal state of health with no issues at all. MEDICATIONS: Lisinopril/hydrochlorothiazide 10/25 one p.o. daily. PAST MEDICAL HISTORY: Hypertension, history of prior right temporal bleed 3 years ago. PAST SURGICAL HISTORY: No significant past surgical history. FAMILY HISTORY: No significant past medical history. SOCIAL HISTORY: The patient is , lives with her . Denies smoking and she quit smoking 15 years ago. Drinks alcohol occasionally. Denies any illegal drug use. PHYSICAL EXAMINATION: General - NAD Eye: PERRL Eye - other findings: Largely left lateral gaze Neck: supple, symmetric, no JVD, no thyromegaly, no lymphadenopathy, no carotid bruit Heart: RRR, no murmur, no gallops, no rubs, normal peripheral pulses Respiratory: CTAB, no wheezes, no rales, no ronchi, normal chest expansion, no tachypnea, normal percussion Gastrointestinal: soft, non-distended, normal bowel sounds, no palpable masses, no hepatomegaly, no splenomegaly, no bruit Extremities: no cyanosis, no clubbing, no edema Skin: normal turgor Neurological - Mental status; the patient is extremely somnolent. She does not follow commands. She does not maintain eye contact. She does have aphasia. Cranial nerves; pupils 4 mm, round and reactive to light. Face-right facial droop. Left gaze preference. Corneals positive. Cough positive. Tongue midline. Moves neck in both direction. Hearing seems to be intact. Cerebellar, did not cooperate with the testing. Right upper extremity 1/5, right lower extremity 2/5. Spontaneous movement of the left upper and lower extremities seen. Sensory, withdraws to nailbed pressure bilaterally, left greater than right. Gait deferred due to patient's safety reasons DATA REVIEWED: WBC 8.9 thou/uL (4.8-10.8) 06/14/20 10:54 Hgb 12.3 g/dL (12.0-16.0) 06/14/20 10:54 Hct 36.4 % (36.0-47.0) 06/14/20 10:54 MCV 96.2 fL (78.0-98.0) 06/14/20 10:54 Plt Count 258 thou/uL (130-400) 06/14/20 10:54 Neutrophils % 65.0 % (42.0-75.0) 06/14/20 10:54 Sodium 138 mmol/L (136-145) 06/14/20 10:54 Potassium 4.0 mmol/L (3.5-5.1) 06/14/20 10:54 Chloride 100 mmol/L (98-107) 06/14/20 10:54 Carbon Dioxide 24 mmol/L (23-31) 06/14/20 10:54 BUN 31 mg/dL (9.8-20.1) H 06/14/20 10:54 Creatinine 1.21 mg/dL (0.6-1.1) H 06/14/20 10:54 Glucose 118 mg/dL (83-110) H 06/14/20 10:54 Calcium 11.0 mg/dL (7.8-10.44) H 06/14/20 10:54 Total Bilirubin 0.5 mg/dL (0.2-1.2) 06/14/20 10:54 AST 27 U/L (5-34) 06/14/20 10:54 ALT 12 U/L (8-55) 06/14/20 10:54 Alkaline Phosphatase 53 U/L (40-110) 06/14/20 10:54 Creatine Kinase 69 U/L (29-168) 06/14/20 10:54 Troponin I Less than 0.010 ng/mL (< 0.028) 06/14/20 10:54 Serum Total Protein 7.8 g/dL (6.0-8.3) 06/14/20 10:54 Albumin 4.7 g/dL (3.4-4.8) 06/14/20 10:54 - Radiology Interpretation CT scan - head Status: image reviewed by me, report reviewed by me Additional Comment: IMPRESSION: Intraparenchymal hematoma involving the left frontoparietal region and involving the cortex. Findings probably represent a hemorrhagic infarct. Other parenchymal hematoma etiologies such as amyloid angiopathy are considerations in a patient of this age. ASSESSMENT AND PLAN: (1) ICH (intracerebral hemorrhage) Code(s): I61.9 - NONTRAUMATIC INTRACEREBRAL HEMORRHAGE, UNSPECIFIED Status: Acute (2) HTN (hypertension) Code(s): I10 - ESSENTIAL (PRIMARY) HYPERTENSION Status: Chronic Ms. Laura Chavez is an 80-year-old female, presented with acute onset right-sided weakness. Head CT is positive for left frontoparietal intraparenchymal hemorrhage. Neurosurgery on board. No surgical intervention needed at this time. Neurosurgery recommended repeat head CT to see if there is any interval change. Consider EEG to rule out cortical irritability. Continue blood pressure control with Cardene drip. Neuro checks every 2 hours. Consider stat noncontrast head CT if the condition decline. Avoid anticoagulation. Continue blood pressure control and medical management per primary team and Neurosurgery. We will continue to follow. Thank you for the consult. Job ID: [id number] MTDD
--- NOTE | 2020-06-14 15:47 | CT ---
CT head without contrast: Multiple axial tomograms obtained through the head without IV enhancement. INDICATIONS: Intracranial hematoma COMPARISON: CT head earlier today FINDINGS: Large intraparenchymal hematoma involving left frontoparietal lobe again noted. Increased density of the hematoma. Surrounding edema has increased. Midline shift at the septum pellucidum measured at 5 mm. Ventricles remain normal size. Visualized sinuses and mastoids appear clear. Bony calvarium appears unremarkable. IMPRESSION: Large intraparenchymal hematoma with surrounding edema. Increased midline shift since film earlier to day.
[2020-06-14 17:29] LABS: Troponin I Less than 0.010 ng/mL (< 0.028)
[2020-06-14] MEDS ORDERED: Mannitol 12.5 GM/50 ML SLOW IVP SCH (22:15)
[2020-06-14] MEDS ORDERED: Sodium Chloride 0.9% 1,000 ML IV SCH (22:15)
[2020-06-14] MEDS ORDERED: Famotidine/PF 20 mg/2ml Vial ONE (22:30)
[2020-06-14] MEDS: Famotidine/PF 20 mg/2ml Vial SLOW IVP SCH (22:38)
--- NOTE | 2020-06-14 23:31 | RAD ---
RADIOGRAPH CHEST 1 VIEW: DATE: 06/14/2020 11:17 PM HISTORY: 80-year-old female with intracerebral acute hemorrhage. Concern for aspiration. FINDINGS: There are no airspace densities, pulmonary edema, pneumothorax, or cardiomegaly. The lateral costophr enic angles are sharp. IMPRESSION: No acute cardiopulmonary findings.
[2020-06-15] MEDS ORDERED: niCARdipine 20MG In NaCl 0 MG/0 ML BAG ONE (00:04)
[2020-06-15] MEDS ORDERED: Ondansetron PF 4 MG/2 ML Vial IVP PRN (00:08)
[2020-06-15] MEDS ORDERED: Ondansetron PF 4 MG/2 ML Vial ONE (00:45)
[2020-06-15 05:03] LABS: #Lymphocytes 0.3 thou/uL (1.20-3.40); #Monocytes 0.8 thou/uL (0.11-0.59); #Neutrophils 13.2 thou/uL (1.40-6.50); %Eosinophils 0.1 % (0.0-10.0); %Lymphocytes 1.9 % (21.0-51.0); %Monocytes 5.7 % (0.0-10.0); %Neutrophils 92.4 % (42.0-75.0); Hemoglobin 10.4 g/dL (12.0-16.0); Mean Corpuscular HGB CONC 34.4 g/dL (32.0-36.0); Mean Corpuscular Volume 96.1 fL (78.0-98.0); Mean Platelet Volume 7.5 fL (7.4-10.4); Platelet Count 212 thou/uL (130-400); RBC Distribution Width 10.9 % (11.5-14.5); Red Blood Cell (RBC) Count 3.15 mill/uL (4.20-5.40); White Blood Cell (WBC) Count 14.2 thou/uL (4.8-10.8)
[2020-06-15 05:23] LABS: Anion Gap 14 mmol/L (10-20); BUN (Urea Nitrogen) 26 mg/dL (9.8-20.1); Calc. Creatinine Clearance 0 mL/min (70-130); Calcium 9.3 mg/dL (7.8-10.44); Carbon Dioxide 25 mmol/L (23-31); Chloride 103 mmol/L (98-107); Estimated GFR-MDRD 50; Glucose 163 mg/dL (83-110); Potassium 3.5 mmol/L (3.5-5.1); Sodium 138 mmol/L (136-145)
[2020-06-15 05:44] LABS: SARS-CoV-2 MS2 Positive; SARS-CoV-2 N Gene Negative; SARS-CoV-2 S Gene Negative; SARS-CoV-2 by NAA Not Detected (NotDetected); SARS-CoV-2 orf1ab Negative
[2020-06-15] MEDS ORDERED: Mannitol 12.5 GM/50 ML ONE (06:13)
[2020-06-15] MEDS ORDERED: Mannitol 12.5 GM/50 ML IV SCH (06:15)
--- NOTE | 2020-06-15 07:57 | PRG ---
DATE OF SERVICE: 06/15/2020 Ms. Chavez is an 80-year-old female who presented with abrupt hemiparesis. She was brought to the ER, where she underwent a CT examination yesterday, which revealed the presence of a large posterior temporoparietal intraparenchymal hemorrhage on the left. She does have a history of prior intracerebral hemorrhage on the contralateral side. I reviewed the notes and plan is dictated by Francisco Mejía, and I overall agree with his assessment. Since that time, she has had expansion of the hemorrhage involving a much larger volume of that hemisphere on her dominant side. There is now associated mass effect with midline shift. She has received two doses of mannitol, and her last serum osmolality was 299. This is a very large hemorrhage, which is likely to be a terminal event for Ms. Chavez. This will be treated nonoperatively. We have had discussions with family and they understand. Job ID: [id number] MTDD
--- NOTE | 2020-06-15 08:08 | CT ---
PRELIMINARY REPORT/[facility]/EMERGENCY AFTER HOURS PROCEDURE: Receipt of this report by the clinical staff was confirmed with Marsha Smith RN by Cheryle Garcia on 2019 04:30:00 LEARNING SUPPORT SERVICES DIRECTOR. Addendum electronically signed by Cheryle Garcia on June 15, 2020 4:30:11 AM LEARNING SUPPORT SERVICES DIRECTOR EXAM: CT Head Without Intravenous Contrast. CLINICAL HISTORY: F/U ICH. TECHNIQUE: Axial computed tomography images of the head/brain without intravenous contrast. COMPARISON: June 14, 2020 FINDINGS: Large intraparenchymal hematoma on the left appears to be expanding somewhat extending anteriorly tow ards the left frontal region. Mass-effect and midline shift are again noted which are worse with wha t appears to be early trapped right lateral ventricle. The degree of midline shift has probably doub led in the interval now to about 1.2 cm approximately. IMPRESSION: Enlarging parenchymal hematoma on the left with increasing mass-effect and midline shift with trapped right lateral ventricle now identified. ELECTRONICALLY SIGNED BY: Josue Barakat MD Jun 15, 2020 4:24:55 AM LEARNING SUPPORT SERVICES DIRECTOR This report is intended for review by the ordering physician only, in accordance of law. If you recei ve this report in error, please call [facility] at [phone]. FINAL REPORT EMERGENT AFTER HOURS CT OF THE BRAIN WITHOUT CONTRAST: COMPARISON: 06/14/2020. FINDINGS/IMPRESSION: I agree with the findings and impression given in the preliminary report per [facility] physici an. There is an enlarging parenchymal hemorrhage in the left cerebral hemisphere with increasing mid line shift and a likely trapped right ventricle. POS: OFF
[2020-06-15] MEDS ORDERED: Famotidine/PF 20 mg/2ml Vial ONE (08:50)
[2020-06-15] MEDS: Famotidine/PF 20 mg/2ml Vial SLOW IVP SCH (08:59)
--- NOTE | 2020-06-15 10:03 | PDOC.HOSPP ---
- Subjective Encounter Date: 06/15/20 Encounter Time: 10:01 Subjective: Patient is unresponsive. Patient's is in the room. - Objective Result Diagrams: 06/15/20 04:54 06/15/20 04:54 Additional Labs: Accuchecks 06/14/20 10:51 POC Glucose 106 H Hospitalist ROS - Medication Medications: Active Medications Generic Name Dose Route Start Last Admin Trade Name Freq PRN Reason Stop Dose Admin Famotidine 20 mg 06/14/20 21:00 06/15/20 08:59 Famotidine/Pf 20 Mg/2ml Vial SLOW IVP 20 mg Q12HR CHLOE Administration Sodium Chloride 1,000 mls @ 100 mls/hr 06/14/20 22:15 06/14/20 23:10 Normal Saline 0.9% IV 1,000 mls .Q10H CHLOE Administration Ondansetron HCl 4 mg 06/15/20 00:08 06/15/20 00:44 Ondansetron Pf 4 Mg/2 Ml Vial IVP 4 mg Q6H PRN Administration Nausea/Vomiting - Exam General - other findings: She is unresponsive. Some spontaneous movement and tremor in the L hand Heart: RRR, no murmur Heart - other findings: Intermittently tachycardic Respiratory: CTAB Extremities: no cyanosis, no clubbing, no edema Hosp A/P (1) ICH (intracerebral hemorrhage) Code(s): I61.9 - NONTRAUMATIC INTRACEREBRAL HEMORRHAGE, UNSPECIFIED Status: Acute (2) HTN (hypertension) Code(s): I10 - ESSENTIAL (PRIMARY) HYPERTENSION Status: Chronic - Plan Unfortunately this patient's intracranial hemorrhage has progressed substantially in spite of efforts to keep her blood pressure minimized. Intraparenchymal in nature and not amenable to significant surgical intervention. She was seen by neurosurgery this morning and there is no plan for surgery. As stated by neurosurgery is concerning for likely terminal event. I have had a long conversation with the patient's this morning. We discussed allowing a bit more time to see how things progress, however, it is likely that clinically she may get worse and very unlikely that she will get significantly better. If she were to survive this it would likely be in a permanent state as she is now if not worse. Alternatively we could consider pursuit of hospice in getting the patient home. He would like to have his child sri come and discuss that situation further. I have asked palliative care to come evaluate the patient and talk to her so that they can help walk him through this process.
[2020-06-15] MEDS ORDERED: niCARdipine 20MG In NaCl 20 MG/200 ML BAG ONE ×3 (10:06→17:12)
--- NOTE | 2020-06-15 11:16 | PDOC.FMACP ---
Advance Care Planning - Problem (1) Palliative care encounter Status: Acute Code(s): Z51.5 - ENCOUNTER FOR PALLIATIVE CARE (2) ICH (intracerebral hemorrhage) Status: Acute Code(s): I61.9 - NONTRAUMATIC INTRACEREBRAL HEMORRHAGE, UNSPECIFIED (3) CKD (chronic kidney disease) stage 2, GFR 60-89 ml/min Status: Chronic Code(s): N18.2 - CHRONIC KIDNEY DISEASE, STAGE 2 (MILD) (4) HTN (hypertension) Status: Chronic Code(s): I10 - ESSENTIAL (PRIMARY) HYPERTENSION (5) Intracranial hematoma Status: Resolved Code(s): S06.369A - TRAUM HEMOR CEREB, W LOC OF UNSP DURATION, INIT - Note Participants: family, palliative care Summary: Palliative Care discussed Advanced Care Planning with patient . The diagnosis, prognosis and goals of care were discussed. Appropriate forms and documentation to accomplish the goals of care were discussed. All questions were answered. Short life review with Mr Augustin about his . They have been 51 years, met at work. They have 3 children and multiple grandchildren who call the patient Leidy. Mrs Augustin had just recently completed her directive to physician. It is clear that she does not desire life sustaining measures in the event of poor prognosis/terminal condition. DNAR complete, placed on chart. Introduced Hospice, Mr Augustin requested an information session with [facility] after family meeting at 2:30 when two of the three children arrive. Choice letter completed, CM order placed. *DNAR complete *Family meeting arranged at 2:30 with patient spouse and two children *Hospice eval request sent, will inform them if the family elects to transition to hospice after 2:30 meeting *Communicated with Dr Olvera, ER charge Asher High, and primary RN Lyudmila Evangelista *Spiritual care consult placed Emotional support and Therapeutic listening with patient spouse at bedside. Time Spent (mins): 50
--- NOTE | 2020-06-15 13:26 | PRG ---
DATE OF SERVICE: 06/15/2020 Ms. Chavez is an 80-year-old woman admitted yesterday for acute intraparenchymal hemorrhage. Overnight, she had somewhat of a slight decline in neurologic status. For this reason, the dose of mannitol was given IV and 0.5 g/kg dose, this was delivered at roughly 2310 hours yesterday evening and then a subsequent dose at a 0.25 g/kg was given at 0515 hours this morning. With all that, unfortunately her neurologic status only minimally improved. Repeat CT scan this morning shows significant evolution of left-sided intraparenchymal hemorrhage to include more of the frontal cortex both posteriorly and anteriorly with worsening vasogenic edema and significant worsening of midline shift left to right. I discussed with daughter at bedside, but unfortunately this looks . Her systolic pressures have remained excellent in the 120s and even with this, she continues to . My concern is that she may have underlying conditions such as amyloid angiopathy. This was discussed again with daughter at bedside. My thoughts are that it is likely best to pursue comfort care only at this time. No surgical intervention would be planned from Ms. Chavez, given her advanced age and current neurologic status, though she does still maintained protecting her airway. We will discuss with Dr. Yanes and defer to Hospice Team at this time. Job ID: [id number]
--- NOTE | 2020-06-16 10:18 | PDOC.DS.DS ---
Provider - Provider Date of Admission: 06/14/20 12:37 Date of Discharge: 06/15/20 Admitting Provider: Josue Olvera MD Consultations: Other (Neurosurgery, palliative care) Primary Care Physician: Valentin Coronel DO Course - Hospital Course Hospital Course: Patient is a 80-year-old female who was relatively healthy. She had a history of a right temporal lobe bleed which had left her with very little residual effects. Patient was doing well until the day of admission. She had gone to her primary care provider for a physical exam and appeared to be well. She subsequently went to eat with her where she had an episode of collapse and acute altered mental status. She presented to the emergency department where CT scans confirmed a left frontal parietal bleed. Initially it appeared to be small and were hopeful that it would stabilize. She had aggressive blood pressure management which was very successful. In spite of that the patient continued to have progression of the bleed to the point that it was fairly extensive and severe. She had midline shift collapse of the ventricle and evidence of substantial related edema. The patient never regained significant mental status although at times she did initially appear awake she became increasingly encephalopathic. She did have some intermittent changes of neurologic deficits. Neurosurgery was following the patient and felt that there was no indication or opportunity for surgical intervention and that this was likely a terminal event. Palliative care was consulted. I had a meeting with the patient's and children along with palliative care and pastoral care. We discussed the options. They were quite clear that the patient would not want to live in the debilitated state and were interested in pursuing hospice at home. They were able to meet with hospice services and ultimately the decision was made to discharge the patient home on hospice. Resuscitation Status: 06/15/20 11:08 Resuscitation Status Routine Co-Sign Provider: Resuscitation Status: DNAR: NO Resuscitation Discussed with: Additional comments: Mr Alan Chavez elected to transition his to a DNAR, document completed. - Labs Lab Results: 06/15/20 04:54 06/15/20 04:54 Abnormal Lab Results - Last 48 hrs 06/14/20 10:54: BUN 31 H, Creatinine 1.21 H, Calcium 11.0 H 06/14/20 10:54: RBC 3.78 L, MCH 32.5 H, RDW 10.8 L, Monocytes # 0.7 H 06/15/20 04:54: BUN 26 H 06/15/20 04:54: WBC 14.2 H, RBC 3.15 L, Hgb 10.4 L, Hct 30.3 L, MCH 33.0 H, RDW 10.9 L, Neutrophils % 92.4 H, Lymphocytes % 1.9 L, Neutrophils # 13.2 H, Lymphocytes # 0.3 L, Monocytes # 0.8 H 06/15/20 04:54: Serum Osmolality 299 H - Physical Exam Physical Exam: The patient was seen and examined on the day of discharge. Problem - Problem (1) ICH (intracerebral hemorrhage) Code(s): I61.9 - NONTRAUMATIC INTRACEREBRAL HEMORRHAGE, UNSPECIFIED Status: Acute (2) HTN (hypertension) Code(s): I10 - ESSENTIAL (PRIMARY) HYPERTENSION Status: Chronic Plan - Discharge Medications Allergies: No Known Drug Allergies Allergy (Verified 05/23/17 15:56) PER ER NOTES - Discharge Instructions Activity:: No Restrictions Nourishment:: No Restrictions Therapies:: Not Applicable Equipment/Supplies:: Not Applicable - Follow up Plan Referrals: Valentin Coronel DO [Primary Care Provider] - Disposition: HOSPICE-HOME Quality - Care Measures CORE MEASURES:: N/A
== END 2020-06-15 19:15 | disposition hospice, home (50) | DRG 64 ==
LOC: ERS 10:48 → ERHOLD 12:16
PROVIDERS: ADMIT Internal Medicine; ATTEND Internal Medicine
DX: I61.1 Nontraumatic intracerebral hemorrhage in hemisphere, cortical (principal); G93.6 Cerebral edema; G81.91 Hemiplegia, unspecified affecting right dominant side; G93.49 Other encephalopathy; Z20.828 Contact with and (suspected) exposure to other viral communicable diseases; I12.9 Hypertensive chronic kidney disease with stage 1 through stage 4 chronic kidney disease, or unspecified chronic kidney disease; N18.2 Chronic kidney disease, stage 2 (mild); Z51.5 Encounter for palliative care; Z66 Do not resuscitate; Z79.899 Other long term (current) drug therapy; Z87.891 Personal history of nicotine dependence
CPT/HCPCS: 36415; 36416; 70450; 71045; 80048; 80053; 82550; 83930; 84484; 85025; 85610; 85730; 87635; 93005; J2150; J2405; S0028; U0003